=== PATIENT | male | born 1985 | race African-American/Black ===

== ENCOUNTER 2020-10-02 12:27 | Emergency (ER) | payer OTHER ==
[2020-10-02 12:35] VITALS: BP 143/83; PULSE 77; TEMP 97.4; BMI 22.4
[2020-10-02] MEDS ORDERED: DIPHTH,PERTUSS(ACELL),TET 0.5 ML DISP.SYRIN IM ONE ×2 (13:25→13:26)
[2020-10-02] MEDS ORDERED: OCTREOTIDE ACETATE 100 MCG/1 ML ONE (13:26)
== END 2020-10-02 13:31 | disposition home or self-care (01) ==
LOC: JERFT 12:27
PROC: 3E0234Z Introduction of Serum, Toxoid and Vaccine into Muscle, Percutaneous Approach (ICD-10-PCS; principal; 2020-10-02)
DX: S61.412A Laceration without foreign body of left hand, initial encounter (principal)
CPT/HCPCS: 90715; 99284-25

== ENCOUNTER 2020-10-09 11:27 | Emergency (ER) | payer OTHER ==
[2020-10-09 11:43] VITALS: BP 120/71; PULSE 77; TEMP 97.9; BMI 23.0
== END 2020-10-09 12:27 | disposition home or self-care (01) ==
LOC: JER 11:27 → JERFT 11:27
DX: Z48.00 Encounter for change or removal of nonsurgical wound dressing (principal)
CPT/HCPCS: 99281-25

== ENCOUNTER 2020-10-16 14:55 | Emergency (ER) | payer OTHER ==
[2020-10-16 15:14] VITALS: BP 118/74; PULSE 90; TEMP 98.1; BMI 23.0
== END 2020-10-16 15:53 | disposition home or self-care (01) ==
LOC: JERFT 14:55
DX: Z48.02 Encounter for removal of sutures (principal)
CPT/HCPCS: 99281-25